=== PATIENT | female | born 1970 | race Caucasian/White ===

== ENCOUNTER 2017-06-07 16:38 | Emergency (ER) | payer BC, OTHER ==
[~2017-06-07] VITALS: Ht 167.6 cm; Wt 100.7 kg
[2017-06-07 16:46] VITALS: BP_SYST 115
[2017-06-07] MEDS ORDERED: MORPHINE 2 MG/ML INJ. SYRINGE IVP ONE (17:15)
[2017-06-07] MEDS ORDERED: CEFAZOLIN 1 GM IVPB PREMIX 50 ML IV ONE (17:15)
[2017-06-07] MEDS ORDERED: DIPHENHYDRAMINE INJ 50 MG/ML VIAL IVP ONE (17:15)
[2017-06-07 17:39] LABS: BASOPHILS # (AUTO) 0.1 K/uL (0.0-0.2); BASOPHILS % (AUTO) 1.1 % (0.0-2.0); EOSINOPHILS # (AUTO) 0.4 K/uL (0.0-0.4); EOSINOPHILS % (AUTO) 5.5 % (0.0-4.0); HEMATOCRIT 43.6 % (36-48); HEMOGLOBIN 14.1 g/dL (12.0-16.0); LYMPHOCYTES # (AUTO) 1.7 K/uL (1.0-5.5); MEAN CORPUSCULAR HEMOGLOBIN 27 pg (27-31); MEAN CORPUSCULAR HGB CONC 32 % (32-36); MEAN CORPUSCULAR VOLUME 84 fL (79.0-98.0); MONOCYTES # (AUTO) 0.4 K/uL (0.0-1.0); MONOCYTES % (AUTO) 6.5 % (1.7-9.3); NEUTROPHILS # (AUTO) 3.9 K/uL (1.8-7.7); NEUTROPHILS % (AUTO) 59.9 % (40.0-70.0); PLATELET COUNT (AUTO) 352 K/uL (130-430); RED CELL DISTRIBUTION WIDTH 13.6 % (9.0-15.0); WHITE BLOOD COUNT (AUTO) 6.5 K/uL (4.8-10.8)
[2017-06-07 17:46] LABS: CALCIUM 9.2 mg/dL (8.4-11.0); CREATININE 1.26 mg/dL (0.55-1.30); POTASSIUM 3.5 mmol/L (3.5-5.1)
[2017-06-07 17:51] LABS: ALBUMIN 3.6 g/dL (3.4-4.8); TOTAL BILIRUBIN 0.7 mg/dL (0.0-1.0)
[2017-06-07 18:29] VITALS: BP_SYST 118
== END 2017-06-07 18:29 | disposition home or self-care (01) ==
LOC: SED 16:38
DX: L03.116 Cellulitis of left lower limb (principal); E07.9 Disorder of thyroid, unspecified; Z90.710 Acquired absence of both cervix and uterus; Z98.890 Other specified postprocedural states
CPT/HCPCS: 36415; 80053; 81025; 83605; 85025; 87040; 96365; 96375; 99284; J0690; J1200; J2270

== ENCOUNTER 2018-01-31 13:49 | Outpatient (CLI) | payer BC | END 2018-01-31 15:52 | disposition home or self-care (01) | LOC: SMA 13:49 | DX: N63.20 Unspecified lump in the left breast, unspecified quadrant (principal); R92.1 Mammographic calcification found on diagnostic imaging of breast | CPT/HCPCS: 76642; 77066 ==

== ENCOUNTER 2018-11-30 14:12 | Inpatient (IN) | payer BC ==
[~2018-11-30] VITALS: Ht 167.6 cm; Wt 98.0 kg
[2018-11-30 14:15] VITALS: BP_SYST 142
--- NOTE | 2018-11-30 14:15 | NUR ---
Patient triaged and placed in waiting room. VSS and patient appears in no acute distress at this time. Accompanied by VISITOR, awaiting available bed, and MD notified of need for MSE.
[2018-11-30 15:46] LABS: BILIRUBIN,URINE NEGATIVE (NEGATIVE); BLOOD, URINE NEGATIVE (NEGATIVE); CLARITY/URINE CLEAR (CLEAR); COLOR,URINE YELLOW (YELLOW); GLUCOSE,URINE NEGATIVE (NEGATIVE); KETONES,URINE NEGATIVE (NEGATIVE); LEUKOCYTE ESTERASE ,URINE NEGATIVE (NEGATIVE); NITRITE, URINE NEGATIVE (NEGATIVE); PROTEIN URINE NEGATIVE (NEGATIVE); UROBILINOGEN,URINE 0.2 (0.2-1.0)
[2018-11-30 16:10] LABS: PROTHROMBIN TIME 10.2 SECS (9.5-12.5)
[2018-11-30 16:13] LABS: CALCIUM 8.9 mg/dL (8.4-11.0); CREATININE 0.77 mg/dL (0.55-1.30); POTASSIUM 4.1 mmol/L (3.5-5.1)
[2018-11-30 16:23] LABS: ALBUMIN 3.6 g/dL (3.4-4.8); TOTAL BILIRUBIN 0.8 mg/dL (0.0-1.0)
[2018-11-30 16:31] LABS: HEMATOCRIT 41.3 % (36-48); HEMOGLOBIN 13.6 g/dL (12.0-16.0); MEAN CORPUSCULAR HEMOGLOBIN 27 pg (27-31); MEAN CORPUSCULAR VOLUME 83 fL (79.0-98.0); RED BLOOD CELL COUNT(AUTO) 4.99 MIL/uL (4.2-6.2); WHITE BLOOD COUNT (AUTO) 5.9 K/uL (4.8-10.8)
[2018-11-30 16:32] LABS: BASOPHILS # (AUTO) 0.1 K/uL (0.0-0.2); BASOPHILS % (AUTO) 0.8 % (0.0-2.0); EOSINOPHILS # (AUTO) 0.2 K/uL (0.0-0.4); EOSINOPHILS % (AUTO) 3.4 % (0.0-4.0); LYMPHOCYTES # (AUTO) 2.3 K/uL (1.0-5.5); LYMPHOCYTES % (AUTO) 39.2 % (20.5-51.5); MEAN CORPUSCULAR HGB CONC 33 % (32-36); MONOCYTES # (AUTO) 0.5 K/uL (0.0-1.0); MONOCYTES % (AUTO) 8.6 % (1.7-9.3); NEUTROPHILS # (AUTO) 2.8 K/uL (1.8-7.7); PLATELET COUNT (AUTO) 347 K/uL (130-430); RED CELL DISTRIBUTION WIDTH 14.8 % (9.0-15.0)
--- NOTE | 2018-11-30 18:15 | NUR ---
Patient to ER bed 8 to gown for evaluation.
--- NOTE | 2018-11-30 18:20 | NUR ---
Patient to ER via triage for evaluation of headache and dizziness prior to arrival, patient is awake, alert and oriented in no acute distress, vital signs stable, respirations even and unlabored, skin warm and dry to touch. Patient denies symptoms at present. Able to ambulate without difficulty with slow, steady gait. Awaiting evaluation by ER MD, will continue to observe and assess.
--- NOTE | 2018-11-30 18:35 | NUR ---
ER at bedside examining patient.
[2018-11-30] MEDS ORDERED: ASPIRIN 325 MG TABLET PO ONE (18:45)
--- NOTE | 2018-11-30 19:00 | NUR ---
Medication reconciliation completed with information provided by patient. Any prior medication reconciliation on file was reviewed and corrected.
[2018-11-30] MEDS ORDERED: LEVO112T5 PO (19:02)
[2018-11-30] MEDS ORDERED: MORPHINE 4 MG/ML INJ. SYRINGE IVP PRN (19:45)
--- NOTE | 2018-11-30 19:51 | NUR ---
Consent for CT with contrast signed and placed in chart.
--- NOTE | 2018-11-30 19:55 | NUR ---
Patient to go to CT scan of chest prior to going to floor. Patient in no acute distress, vital signs stable, respirations even and unlabored, skin warm and dry to touch. Patient continues to deny CP at present.
[2018-11-30] MEDS ORDERED: IOHEXOL 100 ML IV ONE (20:00)
--- NOTE | 2018-11-30 20:09 | NUR ---
Patient returned from CT scan in stable condition via wheelchair. Patient to go to room 135.
--- NOTE | 2018-11-30 20:10 | NUR ---
Patient will be admitted to care of Dr Blake. Admitted to tele unit. Will go to room 135. Belongings list completed. Summary report printed. Report will be given at bedside. Transfer to tele room 135 via ACLS protocol. Licensed nurse present. IV present no signs or symptoms of infiltration.
--- NOTE | 2018-11-30 20:25 | NUR ---
OPENING NOTE PT ARRIVED ONTO TO THE FLOOR AT 2024 VIA GURNEY. PT RESTING IN BED COMFORTABLY . CHEST RISE EVEN AND UNLABORED. ENDORSEMENT REPORT RECEIVED FROM ED NURSE IFEOMA. NO NEEDS AT THIS TIME. ADMISSION DATA WILL BE COMPLETED BY ADMISSION NURSE ADENIKE.
--- NOTE | 2018-11-30 20:25 | NUR ---
PT ARRIVED ONTO THE FLOOR VIA ARIESRJOCELYN
[2018-11-30 20:41] VITALS: BP_SYST 122
[2018-11-30 20:45] VITALS: BP_SYST 122
--- NOTE | 2018-11-30 20:45 | NUR ---
RN ROUNDS PT RESTING IN BED COMFORTABLY. CHEST RISE EVEN AND UNLABORED. IV ON LEFT AC 20G. IV CLEAN, DRY AND INTACT. SKIN CLEAN, DRY AND INTACT. HEART MONITOR IN PLACE ORDERED. VITAL SIGNS WNL. PT TRANSPORTED TO [facility]. ORIENTED PT TO HOSPITAL ROOM, PT VERBALIZED UNDERSTANDING. PT EDUCATED ON SAFETY, PT INSTRUCTED TO USE CALL LIGHT OR ROOM PHONE TO CALL FOR ASSISTANCE. PT VERBALIZED UNDERSTANDING. SAFETY MEASURES IN PLACE. CALL LIGHT/ROOM PHONE WITHIN REACH, BED IN LOWEST POSITION, BED RAILS UP X2, BED ALARM ON, BED WHEELS LOCKED, BEDSIDE TABLE WITHIN REACH. NO OTHER NEEDS AT THIS TIME. WILL CONTINUE TO MONITOR PT.
--- NOTE | 2018-11-30 23:50 | NUR ---
RN ROUNDS PT RESTING IN BED COMFORTABLY. CHEST RISE EVEN AND UNLABORED. NO SOB NOTED. NO DISTRESS NOTED. PT DENIES PAIN AT THIS TIME. SAFETY MEASURES IN PLACE. WILL CONTINUE TO MONITOR PT.
[2018-12-01] MEDS ORDERED: ACETAMINOPHEN 325 MG TABLET PO PRN (00:15)
[2018-12-01] MEDS ORDERED: ONDANSETRON HCL 4 MG/2 ML VIAL IVP PRN (00:15)
[2018-12-01] MEDS ORDERED: ALBUTEROL SULFATE 0.083% 2.5 MG/3 ML VIAL.NEB INH PRN (00:15)
[2018-12-01] MEDS ORDERED: NACL 0.9% 1,000 ML IV SCH (00:15)
[2018-12-01] MEDS ORDERED: MORPHINE 4 MG/ML INJ. SYRINGE IVP PRN (00:15)
[2018-12-01] MEDS ORDERED: LORazepam 2 MG/ML VIAL IVP PRN (00:15)
--- NOTE | 2018-12-01 01:15 | NUR ---
RN ROUNDS PT RESTING IN BED COMFORTABLY WITH EYES CLOSED. CHEST RISE EVEN AND UNLABORED. NO S/S OF PAIN NOTED. SAFETY MEASURES IN PLACE. NO OTHER NEEDS AT THIS TIME. WILL CONTINUE TO MONITOR PT.
[2018-12-01 02:38] VITALS: BP_SYST 122
--- NOTE | 2018-12-01 06:30 | NUR ---
RN ROUNDS PT RESTING IN BED COMFORTABLY. CHEST RISE EVEN AND UNLABORED. NO SOB NOTED. NO DISTRESS NOTED. IVF INFUSING WELL. SCHEDULED MEDICATIONS ADMINISTERED ORDERED. NO OTHER NEEDS AT THIS TIME. SAFETY MEASURES IN PLACE. WILL CONTINUE TO MONITOR PT.
--- NOTE | 2018-12-01 06:48 | NUR ---
CLOSING NOTE PT RESTING IN BED COMFORTABLY. CHEST RISE EVEN AND UNLABORED. NO SOB NOTED. NO DISTRESS NOTED. NO S/S OF PAIN NOTED. NO COMPLAINTS OF PAIN AT THIS TIME. ALL SCHEDULED MEDICATIONS ADMINISTERED ORDERED. ALL NEEDS MET THROUGHOUT SHIFT. ALL SAFETY MEASURES IN PLACE. PT CARE WILL BE ENDORSED TO DAY SHIFT NURSE MOLLY AT BEDSIDE.
[2018-12-01] MEDS ORDERED: LEVOTHYROXINE SODIUM 0.112 MG TABLET PO SCH (07:00)
[2018-12-01 07:06] LABS: BASOPHILS % (AUTO) 0.7 % (0.0-2.0); EOSINOPHILS # (AUTO) 0.2 K/uL (0.0-0.4); EOSINOPHILS % (AUTO) 4.3 % (0.0-4.0); HEMOGLOBIN 13.5 g/dL (12.0-16.0); LYMPHOCYTES # (AUTO) 1.8 K/uL (1.0-5.5); LYMPHOCYTES % (AUTO) 40.7 % (20.5-51.5); MEAN CORPUSCULAR HEMOGLOBIN 27 pg (27-31); MEAN CORPUSCULAR HGB CONC 32 % (32-36); MEAN CORPUSCULAR VOLUME 83 fL (79.0-98.0); MONOCYTES # (AUTO) 0.4 K/uL (0.0-1.0); MONOCYTES % (AUTO) 9.6 % (1.7-9.3); NEUTROPHILS % (AUTO) 44.7 % (40.0-70.0); PLATELET COUNT (AUTO) 329 K/uL (130-430); RED BLOOD CELL COUNT(AUTO) 5.08 MIL/uL (4.2-6.2); RED CELL DISTRIBUTION WIDTH 14.4 % (9.0-15.0); WHITE BLOOD COUNT (AUTO) 4.4 K/uL (4.8-10.8)
--- NOTE | 2018-12-01 07:15 | NUR ---
received report at the bedside. patient is asleep. no acute distress noted.
[2018-12-01 07:57] LABS: CHOLESTEROL 176 mg/dL (<200); HDL CHOLESTEROL 53 mg/dL (>55); LDL CHOLESTEROL 102 mg/dL (<100); TRIGLYCERIDES 100 mg/dL (30-150)
[2018-12-01 07:59] LABS: ANION GAP 9 (5-15); CALCIUM 8.6 mg/dL (8.4-11.0); CHLORIDE 107 mmol/L (98-107); CREATININE 0.69 mg/dL (0.55-1.30); GLUCOSE 105 mg/dL (70-99); POTASSIUM 3.9 mmol/L (3.5-5.1); SODIUM SERUM 143 mmol/L (136-145); UREA NITROGEN, BLOOD 15 mg/dL (8-21)
[2018-12-01 08:00] LABS: GFR AFRICAN AMERICAN 117 mL/min (>90)
[2018-12-01 08:27] LABS: ALANINE AMINOTRANSFERASE 20 U/L (12-78); ALBUMIN 3.1 g/dL (3.4-4.8); ASPARTATE AMINOTRANSFERASE 21 U/L (10-37); TOTAL BILIRUBIN 0.8 mg/dL (0.0-1.0)
--- NOTE | 2018-12-01 08:46 | NUR ---
carotid doppler procedure at the bedside. patient is stable. no pain so far. no acute distress noted.
--- NOTE | 2018-12-01 09:20 | NUR ---
dr montalvo came and see patient.
[2018-12-01 09:43] VITALS: BP_SYST 107
--- NOTE | 2018-12-01 09:53 | NUR ---
no medication due at this time.
[2018-12-01 11:41] VITALS: BP_SYST 110
[2018-12-01 12:05] VITALS: BP_SYST 127
--- NOTE | 2018-12-01 12:41 | NUR ---
discharge instructions given at this time. to continue levothyroxine in am. follow up primary care physician and net mender. scdh id band removed.
--- NOTE | 2018-12-01 13:25 | NUR ---
patient left in stable condition accompanied by the . refused to have wheelchair. verbalized would like to walk. instructed to follow up with pcp and web services manager and continue levothyroxine po every am. discharge packet given and signed it.
--- NOTE | 2018-12-01 13:52 | NUR ---
PCP Appointment Patient needs to call to schedule own appointment and they will contact patient back with appointment date and time. Nina Galaviz, HCP Ditcher Operator [phone]
== END 2018-12-01 13:25 | disposition home or self-care (01) | DRG 392 ==
LOC: SED 14:12 → STU 19:31
PROVIDERS: ADMIT Internal Medicine; ATTEND Internal Medicine
DX: K21.9 Gastro-esophageal reflux disease without esophagitis (principal); E03.9 Hypothyroidism, unspecified; E66.9 Obesity, unspecified; G47.30 Sleep apnea, unspecified; R07.89 Other chest pain; Z68.34 Body mass index [BMI] 34.0-34.9, adult; Z88.1 Allergy status to other antibiotic agents
CPT/HCPCS: 36415; 70450-TC; 71045; 71260-TC; 80053; 80061; 81003; 84443-TC; 84484; 84702-TC; 85025; 85379; 85610-TC; 85730-TC; 93005; 93306; 93880; 99285; G0378; J7030; Q9967

== ENCOUNTER 2019-06-14 18:45 | Emergency (ER) | payer BC ==
[~2019-06-14] VITALS: Ht 167.6 cm; Wt 102.1 kg
[~2019-06-14 18:45] MED LIST: LEVO112T5 PO
[2019-06-14 19:18] VITALS: BP_SYST 122
--- NOTE | 2019-06-14 19:18 | NUR ---
Pt ambulatory to bed 4 for evaluation
[2019-06-14] MEDS ORDERED: LEVO125T8 PO (19:29)
--- NOTE | 2019-06-14 19:36 | NUR ---
Pt stated this pain is simular to the pain I get with diverticulitis. Pt has a history of divertuculitis. Pt has gotten worst since Tuesday.
--- NOTE | 2019-06-14 19:52 | NUR ---
ER at bedside examining patient.
[2019-06-14] MEDS ORDERED: NACL 0.9% 1,000 ML IV ONE (19:55)
[2019-06-14] MEDS ORDERED: fentaNYL CITRATE/PF 100 MCG/2 ML AMP IVP ONE (20:00)
[2019-06-14] MEDS ORDERED: ONDANSETRON HCL 4 MG/2 ML VIAL IVP ONE (20:00)
--- NOTE | 2019-06-14 20:10 | NUR ---
# 20 gauge angiocath placed to lateral LAC. Use of asceptic technique. Opsite placed over site. Blood return noted. Blood for lab drawn from site. Flushed with 10 cc of normal saline. No evidence of infiltration noted. Patient tolerated well.
--- NOTE | 2019-06-14 20:20 | NUR ---
Pt taken for CT of abdomen, via wheelchair.
[2019-06-14 20:24] LABS: BASOPHILS # (AUTO) 0.1 K/uL (0.0-0.2); BASOPHILS % (AUTO) 1.3 % (0.0-2.0); EOSINOPHILS # (AUTO) 0.3 K/uL (0.0-0.4); EOSINOPHILS % (AUTO) 4.9 % (0.0-4.0); HEMATOCRIT 41.2 % (36-48); HEMOGLOBIN 13.7 g/dL (12.0-16.0); LYMPHOCYTES # (AUTO) 2.3 K/uL (1.0-5.5); LYMPHOCYTES % (AUTO) 37.2 % (20.5-51.5); MEAN CORPUSCULAR HEMOGLOBIN 28 pg (27-31); MEAN CORPUSCULAR HGB CONC 33 % (32-36); MEAN CORPUSCULAR VOLUME 84 fL (79.0-98.0); MONOCYTES # (AUTO) 0.5 K/uL (0.0-1.0); MONOCYTES % (AUTO) 7.6 % (1.7-9.3); PLATELET COUNT (AUTO) 319 K/uL (130-430); RED BLOOD CELL COUNT(AUTO) 4.89 MIL/uL (4.2-6.2); RED CELL DISTRIBUTION WIDTH 14.5 % (9.0-15.0); WHITE BLOOD COUNT (AUTO) 6.1 K/uL (4.8-10.8)
[2019-06-14 20:33] LABS: BILIRUBIN,URINE NEGATIVE (NEGATIVE); BLOOD, URINE NEGATIVE (NEGATIVE); CLARITY/URINE CLEAR (CLEAR); COLOR,URINE YELLOW (YELLOW); GLUCOSE,URINE NEGATIVE (NEGATIVE); KETONES,URINE NEGATIVE (NEGATIVE); LEUKOCYTE ESTERASE ,URINE NEGATIVE (NEGATIVE); NITRITE, URINE NEGATIVE (NEGATIVE); PROTEIN URINE NEGATIVE (NEGATIVE); UROBILINOGEN,URINE 0.2 (0.2-1.0)
[2019-06-14 20:54] LABS: CALCIUM 9.2 mg/dL (8.4-11.0); CREATININE 0.84 mg/dL (0.55-1.30); POTASSIUM 3.5 mmol/L (3.5-5.1)
[2019-06-14 20:58] LABS: ALBUMIN 3.4 g/dL (3.4-4.8); TOTAL BILIRUBIN 0.8 mg/dL (0.0-1.0)
--- NOTE | 2019-06-14 21:30 | NUR ---
Patient resting quietly. No acute distress noted. Vital signs within normal range.
[2019-06-14 23:15] VITALS: BP_SYST 109
--- NOTE | 2019-06-14 23:15 | NUR ---
Patient given written and verbal discharge instructions and verbalizes understanding. ER MD discussed with patient the results and treatment provided. Patient in stable condition. ID arm band removed. IV catheter removed intact and dressing applied, no active bleeding. Rx of & Red Bud 5mg-325mg given. Patient educated on pain management and to follow up with PMD. Pain Scale 5/10. Opportunity for questions provided and answered. Medication side effect fact sheet provided.
== END 2019-06-14 23:15 | disposition home or self-care (01) ==
LOC: SED 18:45
DX: R10.32 Left lower quadrant pain (principal); Z88.1 Allergy status to other antibiotic agents; Z91.018 Allergy to other foods; Z90.89 Acquired absence of other organs
CPT/HCPCS: 36415; 74176; 80053; 81003; 83605; 85025; 87040; 96374; 96375; 99284; J2405; J3010; J7030

== ENCOUNTER 2019-12-14 13:59 | Emergency (ER) | payer BC, OTHER ==
[~2019-12-14] VITALS: Ht 167.6 cm; Wt 96.2 kg
[~2019-12-14 13:59] MED LIST changes: -LEVO112T5 PO; +LEVO125T8 PO
[2019-12-14 14:32] VITALS: BP_SYST 126
--- NOTE | 2019-12-14 14:39 | NUR ---
Patient triaged and placed in waiting room. VSS and patient appears in no acute distress at this time. Awaiting available bed, and MD notified of need for MSE.
[2019-12-14] MEDS ORDERED: NACL 0.9% 1,000 ML IV ONE (14:59)
[2019-12-14] MEDS ORDERED: metroNIDAZOLE 500 mg/NS 100 ML IV ONE (15:00)
[2019-12-14] MEDS ORDERED: ONDANSETRON HCL 4 MG/2 ML VIAL IVP ONE (15:00)
[2019-12-14] MEDS ORDERED: MORPHINE 4 MG/ML INJ. SYRINGE IVP ONE (15:00)
[2019-12-14] MEDS ORDERED: KETOROLAC TROMETHAMINE 30 MG VIAL IVP ONE (15:00)
[2019-12-14] MEDS ORDERED: LEVOFLOXACIN 500 MG/D5W 100 ML IV ONE (15:00)
[2019-12-14 15:31] LABS: BASOPHILS # (AUTO) 0.1 K/uL (0.0-0.2); BASOPHILS % (AUTO) 0.7 % (0.0-2.0); EOSINOPHILS # (AUTO) 0.2 K/uL (0.0-0.4); HEMATOCRIT 43.9 % (36-48); HEMOGLOBIN 14.4 g/dL (12.0-16.0); LYMPHOCYTES # (AUTO) 2.3 K/uL (1.0-5.5); MEAN CORPUSCULAR HEMOGLOBIN 28 pg (27-31); MEAN CORPUSCULAR HGB CONC 33 % (32-36); MEAN CORPUSCULAR VOLUME 85 fL (79.0-98.0); MONOCYTES # (AUTO) 0.6 K/uL (0.0-1.0); MONOCYTES % (AUTO) 7.1 % (1.7-9.3); NEUTROPHILS # (AUTO) 5.2 K/uL (1.8-7.7); NEUTROPHILS % (AUTO) 62.2 % (40.0-70.0); PLATELET COUNT (AUTO) 317 K/uL (130-430); RED BLOOD CELL COUNT(AUTO) 5.17 MIL/uL (4.2-6.2); RED CELL DISTRIBUTION WIDTH 14.7 % (9.0-15.0); WHITE BLOOD COUNT (AUTO) 8.3 K/uL (4.8-10.8)
[2019-12-14 15:35] LABS: CALCIUM 9.1 mg/dL (8.4-11.0); CREATININE 0.64 mg/dL (0.55-1.30); POTASSIUM 3.9 mmol/L (3.5-5.1)
--- NOTE | 2019-12-14 15:45 | NUR ---
Patient to ER bed 6 to gown for evaluation. Side rails up.
[2019-12-14 15:46] LABS: ALBUMIN 3.8 g/dL (3.4-4.8)
--- NOTE | 2019-12-14 15:58 | NUR ---
ER at bedside examining patient.
--- NOTE | 2019-12-14 16:00 | NUR ---
# 20 gauge angiocath placed to RAC. Use of asceptic technique. Opsite placed over site. Blood return noted. Blood for lab drawn from site. Flushed with 10 cc of normal saline. No evidence of infiltration noted. Patient tolerated well.
--- NOTE | 2019-12-14 16:10 | NUR ---
medicated the pt w/ Toradol, morphine, and NS 1l. zofran per MD order. Will reassess
[2019-12-14 16:29] LABS: BILIRUBIN,URINE NEGATIVE (NEGATIVE); BLOOD, URINE NEGATIVE (NEGATIVE); CLARITY/URINE CLEAR (CLEAR); COLOR,URINE YELLOW (YELLOW); GLUCOSE,URINE NEGATIVE (NEGATIVE); KETONES,URINE NEGATIVE (NEGATIVE); LEUKOCYTE ESTERASE ,URINE NEGATIVE (NEGATIVE); NITRITE, URINE NEGATIVE (NEGATIVE); PROTEIN URINE NEGATIVE (NEGATIVE); UROBILINOGEN,URINE 0.2 (0.2-1.0)
--- NOTE | 2019-12-14 16:50 | NUR ---
pt currently infusing Falgyl and Levaquin. Blood cx priorly drawn
[2019-12-14 17:15] VITALS: BP_SYST 124
--- NOTE | 2019-12-14 17:20 | NUR ---
Patient given written and verbal discharge instructions and verbalizes understanding. ER MD discussed with patient the results and treatment provided. Patient in stable condition. ID arm band removed. IV catheter removed intact and dressing applied, no active bleeding. Rx of Flagyl and Cipro given. Patient educated on pain management and to follow up with PMD. Pain Scale 3/10. Opportunity for questions provided and answered. Medication side effect fact sheet provided.
== END 2019-12-14 17:20 | disposition home or self-care (01) ==
LOC: SED 13:59
DX: K57.92 Diverticulitis of intestine, part unspecified, without perforation or abscess without bleeding (principal); E07.9 Disorder of thyroid, unspecified; Z90.710 Acquired absence of both cervix and uterus; Z88.1 Allergy status to other antibiotic agents; Z91.018 Allergy to other foods
CPT/HCPCS: 36415; 74176; 80053; 81003; 85025; 96365; 96368; 96375; 99284; J1885; J2270; J2405; J3490; J7030

== ENCOUNTER 2023-09-25 16:36 | Emergency (ER) | payer BC, OTHER ==
[~2023-09-25] VITALS: Ht 167.6 cm; Wt 97.5 kg
[2023-09-25 16:40] VITALS: BP_SYST 138; PULSE 57; RESP 17; TEMP 97.3; O2SAT 96
[2023-09-25 17:09] LABS: BASOPHILS # (AUTO) 0.1 K/uL (0.0-0.2); BASOPHILS % (AUTO) 0.9 % (0.0-2.0); EOSINOPHILS # (AUTO) 0.2 K/uL (0.0-0.4); HEMATOCRIT 46.1 % (36-48); HEMOGLOBIN 15.2 g/dL (12.0-16.0); LYMPHOCYTES # (AUTO) 2.7 K/uL (1.0-5.5); LYMPHOCYTES % (AUTO) 35.6 % (20.5-51.5); MEAN CORPUSCULAR HEMOGLOBIN 29 pg (27-31); MEAN CORPUSCULAR HGB CONC 33 % (32-36); MEAN CORPUSCULAR VOLUME 88 fL (79.0-98.0); MONOCYTES # (AUTO) 0.5 K/uL (0.0-1.0); MONOCYTES % (AUTO) 6.7 % (1.7-9.3); NEUTROPHILS # (AUTO) 4.1 K/uL (1.8-7.7); NEUTROPHILS % (AUTO) 53.8 % (40.0-70.0); PLATELET COUNT (AUTO) 363 K/uL (130-430); RED BLOOD CELL COUNT(AUTO) 5.22 MIL/uL (4.2-6.2); RED CELL DISTRIBUTION WIDTH 13.8 % (9.0-15.0); WHITE BLOOD COUNT (AUTO) 7.6 K/uL (4.8-10.8)
[2023-09-25 17:25] LABS: ALANINE AMINOTRANSFERASE 16 U/L (12-78); ALBUMIN 3.6 g/dL (3.4-4.8); ANION GAP 6 (5-15); ASPARTATE AMINOTRANSFERASE 16 U/L (10-37); CALCIUM 9.6 mg/dL (8.4-11.0); CARBON DIOXIDE 27 mmol/L (23-29); CHLORIDE 104 mmol/L (98-107); CREATININE 0.72 mg/dL (0.55-1.30); GFR AFRICAN AMERICAN 109 mL/min (>90); GFR NON AFRICAN-AMERICAN 90 mL/min (>90); GLUCOSE 106 mg/dL (74-106); POTASSIUM 3.6 mmol/L (3.5-5.1); SODIUM SERUM 137 mmol/L (136-145); TOTAL BILIRUBIN 0.5 mg/dL (0.0-1.0); TOTAL PROTEIN, SERUM 7.2 g/dL (6.4-8.3); UREA NITROGEN, BLOOD 19 mg/dL (8-21)
[2023-09-25 17:27] LABS: BILIRUBIN,DIRECT 0.2 mg/dL (0.0-0.3)
[2023-09-25] MEDS: ASPIRIN 81 MG TAB.CHEW PO ONE ×2 (20:18→20:32)
[2023-09-25] MEDS ORDERED: KETOROLAC TROMETHAMINE 30 MG VIAL IM ONE (21:00)
[2023-09-25 21:55] VITALS: BP_SYST 120; PULSE 64; RESP 20; TEMP 97.7; O2SAT 97
== END 2023-09-25 21:55 | disposition home or self-care (01) ==
LOC: SED 16:36
DX: M94.0 Chondrocostal junction syndrome [Tietze] (principal); R07.89 Other chest pain; Z88.1 Allergy status to other antibiotic agents; Z79.899 Other long term (current) drug therapy
CPT/HCPCS: 99285; 71045; 80076; 80048; 83880; 85025; 84484; 36415; 93005; 96372; J1885

== ENCOUNTER 2024-04-07 21:21 | Emergency (ER) | payer BC ==
[~2024-04-07] VITALS: Ht 167.6 cm; Wt 96.6 kg
[2024-04-07 22:09] VITALS: BP_SYST 132; PULSE 107; RESP 16; TEMP 97.9; O2SAT 97
[2024-04-07] MEDS: KETOROLAC TROMETHAMINE 30 MG VIAL IM ONE (23:03)
[2024-04-07] MEDS ORDERED: HYDR-3917 PO (23:24)
[2024-04-07 23:50] VITALS: BP_SYST 132; PULSE 78; RESP 18; TEMP 97.9; O2SAT 97
== END 2024-04-07 23:50 | disposition home or self-care (01) ==
LOC: SED 21:21
DX: S20.211A Contusion of right front wall of thorax, initial encounter (principal); S00.83XA Contusion of other part of head, initial encounter; M79.651 Pain in right thigh; M54.2 Cervicalgia; R42 Dizziness and giddiness; Z88.1 Allergy status to other antibiotic agents; Z91.018 Allergy to other foods; Z79.899 Other long term (current) drug therapy; W01.0XXA Fall on same level from slipping, tripping and stumbling without subsequent striking against object, initial encounter; Y93.89 Activity, other specified; Y92.89 Other specified places as the place of occurrence of the external cause; Y99.8 Other external cause status
CPT/HCPCS: 99285; 70450; 71100; 72170; 73552; 72125; 96372; J1885